=== PATIENT | male | born 1955 | race Caucasian/White ===

== ENCOUNTER 2022-03-19 06:09 | Outpatient (CLI) | payer OTHER | END 2022-03-19 06:10 | disposition home or self-care (01) | LOC: LAB 06:09 | PROVIDERS: ATTEND Internal Medicine | DX: U07.1 COVID-19 (principal) ==

== ENCOUNTER 2022-03-19 07:26 | Outpatient (CLI) | payer OTHER | END 2022-03-19 07:44 | disposition home or self-care (01) | LOC: NUCLEAR 07:26 | PROVIDERS: ATTEND Internal Medicine Cardiovascular Disease | DX: I25.9 Chronic ischemic heart disease, unspecified (principal) | CPT/HCPCS: 78452; 93017; A9500 ==

== ENCOUNTER 2023-01-07 07:52 | Outpatient (CLI) | payer OTHER | END 2023-01-07 08:08 | disposition home or self-care (01) | LOC: SONOGRAMA 07:52 | PROVIDERS: ATTEND Family Medicine | DX: N40.0 Benign prostatic hyperplasia without lower urinary tract symptoms (principal) ==

== ENCOUNTER → 2023-01-21 | Outpatient (CLI) | payer OTHER | END | disposition home or self-care (01) | LOC: SONOGRAMA 07:48 | PROVIDERS: ATTEND Family Medicine | DX: M79.661 Pain in right lower leg (principal) ==

== ENCOUNTER 2023-08-22 08:39 | Outpatient (CLI) | payer OTHER | END 2023-08-22 08:43 | disposition home or self-care (01) | LOC: RAD 08:39 | PROVIDERS: ATTEND Family Medicine | DX: S83.242A Other tear of medial meniscus, current injury, left knee, initial encounter (principal); M25.562 Pain in left knee ==

== ENCOUNTER 2025-03-22 08:30 | Outpatient (CLI) | payer OTHER | END 2025-03-22 08:32 | disposition home or self-care (01) | LOC: RAD 08:30 | PROVIDERS: ATTEND Surgery | DX: K42.9 Umbilical hernia without obstruction or gangrene (principal) ==

== ENCOUNTER 2025-05-03 13:44 | Outpatient (CLI) | payer OTHER | END 2025-05-03 13:47 | disposition home or self-care (01) | LOC: SONOGRAMA 13:44 | PROVIDERS: ATTEND Family Medicine | DX: M76.61 Achilles tendinitis, right leg (principal) ==